=== PATIENT | male | born 1970 | race American Indian/Alaskan Native ===

== ENCOUNTER 2017-05-15 05:43 | Day surgery (SDC) | payer OTHER ==
[~2017-05-15 05:43] MED LIST: MARCAINE 0.25% INFILTRATI ONE
[2017-05-15] MEDS ORDERED: PEPCID PO NR (06:00)
[2017-05-15] MEDS ORDERED: NACL 0.9% 1000 ML 1,000 ML IV SCH (06:00)
[2017-05-15] MEDS ORDERED: SUBLIMAZE IV NR (06:00)
[2017-05-15] MEDS ORDERED: VERSED IV NR (06:00)
[2017-05-15] MEDS ORDERED: MARCAINE-EPI/PF 0.5%-1:200,000 INFILTRATI ONE (07:16)
[2017-05-15] MEDS ORDERED: XYLOCAINE 1% 20 mL ONE (07:16)
[2017-05-15] MEDS ORDERED: DECADRON ONE (07:16)
[2017-05-15] MEDS ORDERED: DIPRIVAN 10 MG/ML IV ONE (07:17)
[2017-05-15] MEDS ORDERED: DILAUDID ONE (07:17)
[2017-05-15] MEDS ORDERED: XYLOCAINE MPF 2% ONE (07:21)
[2017-05-15] MEDS ORDERED: XYLOCAINE 1%/ EPI 1:100,000 INFILTRATI ONE ×2 (07:26→08:30)
[2017-05-15] MEDS ORDERED: ADRENALIN ONE ×2 (07:26)
[2017-05-15] MEDS ORDERED: MARCAINE 0.25% INFILTRATI ONE ×2 (07:26→09:53)
[2017-05-15] MEDS ORDERED: ANCEF/STERILE WATER 2 GM/20 ML IV NR (08:00)
[2017-05-15] MEDS ORDERED: DILAUDID IV PRN (08:14)
--- NOTE | 2017-05-15 08:16 | Anesthesia Day of Surgery ---
Anesthesia Day of Surgery - Day of Surgery Patient Examined: Yes Patient H&P Reviewed: Yes Patient is NPO: Yes Beta Blockers: Yes
--- NOTE | 2017-05-15 08:16 | Anesthesia Consultation ---
Anesthesia Consult and Med Hx Date of service: 05/15/17 - Airway Anesthetic Teeth Evaluation: Good ROM Head & Neck: Adequate Mental/Hyoid Distance: Adequate Mallampati Class: Class II Intubation Access Assessment: Probably Good - Pulmonary Exam CTA: Yes - Cardiac Exam Cardiac Exam: RRR - Pre-Operative Health Status ASA Pre-Surgery Classification: ASA3 Proposed Anesthetic Plan: General Nerve Block: IS - Pulmonary Hx Smoking: No Hx Asthma: No Hx Sleep Apnea: No - Cardiovascular System Hx Hypertension: Yes - Central Nervous System Hx Seizures: No CVA: No - Endocrine Hx Renal Disease: No Hx Cirrhosis: No Hx Non-Insulin Dependent Diabetes: Yes - Other Systems Hx Obesity: Yes
[2017-05-15] MEDS ORDERED: ADRENALIN IV ONE (08:30)
[2017-05-15] MEDS ORDERED: ZOFRAN IV PRN (08:30)
[2017-05-15] MEDS ORDERED: NACL 0.9% IR ONE (08:30)
[2017-05-15] MEDS ORDERED: ZOFRAN ONE (09:51)
--- NOTE | 2017-05-15 10:10 | Short Stay Summary ---
Short Stay Documentation - Allergies and Medications Current Medications: Allergies No Known Allergies Allergy (Verified 05/13/17 15:35) Home Medications Medication Instructions Recorded Confirmed Last Taken Type Dulaglutide [Trulicity] 0.75 mg SQ QWEEK 05/13/17 05/15/17 05/11/17 History Empagliflozin (Nf) [Jardiance (Nf)] 10 mg PO DAILY 05/13/17 05/13/17 05/14/17 History Gabapentin [Neurontin] 300 mg PO DAILY 05/13/17 05/13/17 05/14/17 History Ibuprofen [Motrin] 800 mg PO Q8HR PRN 05/13/17 05/15/17 05/07/17 History Losartan [Cozaar] 100 mg PO QDAY 05/13/17 05/15/17 05/15/17 04:30 History Methocarbamol [Robaxin TAB] 750 mg PO BID 05/13/17 05/15/17 05/07/17 History Metoprolol [Lopressor TAB] 50 mg PO BID 05/13/17 05/15/17 05/15/17 04:30 History Pravastatin Sodium [Pravastatin] 20 mg PO QHS 05/13/17 05/13/17 05/14/17 History Sitagliptin Phos/Metformin HCl 1 tab PO BID 05/13/17 05/13/17 05/14/17 History [Janumet 50-1,000 mg] Trazodone HCl [Oleptro ER] 75 mg PO QHS 05/13/17 05/13/17 05/14/17 History glipiZIDE [glipiZIDE XL] 10 mg PO DAILY 05/13/17 05/13/17 05/14/17 History traMADol [Ultram] 50 mg PO Q6HR PRN 05/13/17 05/13/17 05/14/17 History Active Medications Cefazolin Sodium (Ancef/Sterile Water 2 Gm/20 Ml) 2 gm IV PREOP NR Stop: 05/15/17 15:00 Famotidine (Pepcid) 20 mg PO PREOP NR Stop: 05/15/17 23:59 Last Admin: 05/15/17 06:52 Dose: 20 mg Fentanyl (Sublimaze) 100 mcg IV ONCE NR Stop: 05/15/17 23:59 Last Admin: 05/15/17 07:20 Dose: 100 mcg Hydromorphone HCl (Dilaudid) 0.5 mg IV Q10MIN PRN PRN Reason: Pain , Severe (7-10) Stop: 05/15/17 15:00 Sodium Chloride (Nacl 0.9% 1000 Ml) 1,000 mls @ 75 mls/hr IV DIRECT PHU Last Admin: 05/15/17 06:52 Dose: 75 mls/hr Midazolam HCl (Versed) 2 mg IV PREOP NR Stop: 05/15/17 23:59 Last Admin: 05/15/17 07:19 Dose: 2 mg Short Stay Discharge Plan Activity: advance as tolerated Weight Bearing Status: Non-Weight Bearing Diet: regular Wound: keep clean and dry, per your surgeon's advice, other (dressing change after 2-3 days amd clean with alcohol wipes and apply sterile dressing, keep wound covered,) Additional Instructions: follow DC instruction sheet and PT orders Follow up with: KAYLI OLIVO MD [Primary Care Provider] - 7 Days OC SABA MD [Staff Physician] - 10 Days
--- NOTE | 2017-05-15 10:29 | Post Anesthesia Evaluation ---
- Post Anesthesia Evaluation Patient Participated: Yes Airway Patent: Yes Stable Respiratory Function: Yes Nausea/Vomiting: No Temp > 96.8F: Yes Pain Manageable: Yes Adequeate Hydration: Yes Anesthesia Complications: No Patient on Ventilator: No
[2017-05-15] MEDS ORDERED: PROVENTIL IH PRN (11:30)
[2017-05-15 16:29] VITALS: BP 106/68
--- NOTE | 2017-05-16 07:13 | Operative Report ---
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 POSTOPERATIVE DIAGNOSES: 1. SLAP tear with bicipital tenosynovitis and some of the tear extending into the biceps tendon within the tendon intra-tendinous area. 2. Tendinosis of subscapularis tendon. 3. Severe impingement syndrome of the right shoulder with synovitis of the right shoulder joint with acromioclavicular joint arthritis. PROCEDURES PERFORMED: 1. Right shoulder arthroscopy. 2. Arthroscopic biceps tenodesis. 3. Arthroscopic debridement of the frayed labral tissue and the synovial tissue, debridement of the shoulder joint. 4. Arthroscopic subacromial decompression, distal clavicle excision limited. SURGEON: Patricio Dockery M.D. [employer] OPERATOR: Ángel Fairchild, operative tech. BRIEF HISTORY: The patient is a 46-year-old man with painful right shoulder, who failed conservative treatment, opted for surgical intervention. Risk and benefit discussed, informed consent obtained, brought to the hospital for the above procedure. DETAILS OF THE OPERATIVE REPORT: The patient was taken the operating room. After smooth general endotracheal anesthesia, all the bony prominences carefully padded, placed in the beach chair position. The patient's right shoulder, right upper extremity prepped and draped in sterile fashion. Antibiotic given half an hour before the procedure, 2 grams Ancef. Anatomical landmarks were drawn out and portal sites infiltrated with 1% lidocaine with epinephrine and a spinal needle inserted into the posterior portal. Posterior portal was created and joint insufflated. A spinal needle was inserted into the glenohumeral joint and suture joint insufflated with 36 mL normal saline. Posterior portal was created under direct visualization and then anterosuperior portal was created. Diagnostic arthroscopy was performed, rotator cuff seemed to be intact, significant tear of the SLAP lesion with biceps tendon with tenodesis seen. Given the significant tear, he had a biceps tenodesis with debridement of the labral tissue seemed to be appropriate given his symptoms and findings. Synovitis seen throughout the glenohumeral joint and a shaver and a wand was used to perform necessary debridement of that for the inflammation he had. PDS suture was used to tack biceps at the level of anchor and once we tacked the biceps tendon, biceps tenotomy was performed and an extra superior lateral portal was created at the level of the bicipital groove. The tendon was delivered out from the accessory portal at the level of the superior aspect of the bicipital groove. The tendon was delivered out and baseball stitch #2 FiberWire was used to ____ like a baseball stitch into about at least 3-4 cm of the tendon for biceps tenodesis. The base was prepared at the level of superior aspect of the bicipital groove at the superior pectoris level and self-punching SwiveLock anchor was used to anchor down. So, punching anchor was used. The biceps tendon was secured well with the anchor into the bicipital groove in the superior aspect. Good fixation was achieved. Once the biceps tenodesis was performed, shaver was used to clean the frayed labral tissue of the glenoid labrum. Synovitis was debrided off as well. Attention was drawn on the subacromial space and before that minimal fraying of the subscapularis, which was present was debrided off. There was some tendinosis and wear and tear of the subscapularis tendon, but this tendon overall seemed to be intact with some tendinosis and wear and tear findings. The subscapularis moved as a unit and doing rotation of the shoulder. Attention was drawn on the subacromial space. Significant amount bursitis was noticed with bursal hypertrophy. Lateral portal was created. Synovial resector was used to perform subacromial bursectomy. Significant amount of hypertrophy and thickening of the bursal tissue, which was underneath the acromion was present as well and wand was used to clean all that from underneath the acromion. The coracoacromial ligament was also released with. We identified some bone spur underneath the acromion and overhang of the distal clavicle or towards the cuff and arthroscopic bur was used to perform necessary minimal acromioplasty and distal clavicle excision in the anterior and inferior aspect which was prominent impinging on the rotator cuff. The bone dust was then shaved off and necessary floating loose synovial tissue was debrided off as well. Fluid was evacuated and arthroscope was removed. Portal sites closed with 3-0 nylon interrupted sutures and portal sites infiltrated with 0.25% plain Marcaine, 3 mL each portal. The patient tolerated the procedure well. Dressing was done with Xeroform, 4 x 4s, ABD, and paper tape. Arm sling support was applied. The patient tolerated the procedure well, shifted to recovery room in stable condition. Sponge and needle count was correct, nurse was given the instructions for the discharge instructions and the physical therapy instructions for biceps tenodesis. JOB# [id number] [facility][id number]
== END 2017-05-15 13:23 | disposition home or self-care (01) ==
LOC: OR 05:43
PROVIDERS: ATTEND Orthopaedic Surgery
DX: S43.431A Superior glenoid labrum lesion of right shoulder, initial encounter (principal); X58.XXXA Exposure to other specified factors, initial encounter; M65.811 Other synovitis and tenosynovitis, right shoulder; M19.011 Primary osteoarthritis, right shoulder; M75.41 Impingement syndrome of right shoulder; M75.81 Other shoulder lesions, right shoulder; I10 Essential (primary) hypertension; E11.9 Type 2 diabetes mellitus without complications; E66.9 Obesity, unspecified; Z68.31 Body mass index [BMI] 31.0-31.9, adult; Z79.84 Long term (current) use of oral hypoglycemic drugs; Z79.899 Other long term (current) drug therapy
CPT/HCPCS: 29823; 29824; 29828; 82962; A4217; C1713; J0171; J0690; J1100; J1170; J2250; J2405; J2704; J3010; J7030